=== PATIENT | born 1955 | race Caucasian/White ===

== ENCOUNTER 2017-12-12 08:51 | Day surgery (SDC) | payer OTHER ==
[2017-12-10 10:23] VITALS: BMI 30.9
[~2017-12-12 08:51] MED LIST: ALPRAZolam 0.25 MG TAB PO PRN; ALPRAZolam 0.5 MG TAB PO PRN; ASPIRIN 325 MG TAB PO STA; ATORVASTATIN 80 MG TAB PO STA; NITROGLYCERIN SL TABS 0.4 MG TAB SUBLINGUAL PRN; SODIUM CHLORIDE 0.9% 1,000 ML in EMPTY BAG 1 BAG IV ONE
[2017-12-12 09:27] VITALS: RESP 16; TEMP 98
[2017-12-12 09:47] LABS: Basophils # (A) 0.1 k/uL (0-0.2); Basophils % (A) 1 %; Eosinophils # (A) 0.3 k/uL (0-0.7); Eosinophils % (A) 4 %; Lymphocytes # (A) 2.1 k/uL (1.0-4.8); Lymphocytes % (A) 30 %; MCH 34.6 pg (25.0-35.0); MCHC 35.6 g/dL (31.0-37.0); MCV 97.3 fL (80.0-100.0); Mean Platelet Volume 6.5; Monocytes # (A) 0.4 k/uL (0-1.0); Monocytes % (A) 6 %; Neutrophils # (A) 3.9 k/uL (1.3-7.7); Neutrophils % (A) 56 %; Platelet Count 193 k/uL (150-450); RBC 4.32 m/uL (4.30-5.90); RDW 14.2 % (11.5-15.5)
[2017-12-12 10:00] LABS: Calcium 9.3 mg/dL (8.4-10.2); Potassium 4.4 mmol/L (3.5-5.1)
[2017-12-12] MEDS ORDERED: VERAPAMIL 2.5 MG/ML 2 ML AMP ONE (11:26)
[2017-12-12] MEDS ORDERED: MIDAZOLAM 2 MG/2 ML VIAL ONE (11:26)
[2017-12-12] MEDS ORDERED: MIDAZOLAM 2 MG/2 ML VIAL IV ONE (11:41)
[2017-12-12] MEDS ORDERED: HEPARIN SODIUM 1,000 UN/ML (10ML VL) ONE (11:42)
[2017-12-12] MEDS ORDERED: LIDOCAINE 2% INJ 20 MG/ML SQ ONE (11:49)
[2017-12-12] MEDS: VERAPAMIL SYRINGE (5 MG/10 ML) INTRAARTER ONE ×2 (11:51→12:06)
[2017-12-12] MEDS ORDERED: HEPARIN SODIUM 1,000 UN/ML (10ML VL) IV ONE (11:52)
[2017-12-12] MEDS ORDERED: IOPAMIDOL-370 125ML BTL INJ ONE (12:07)
[2017-12-12] MEDS ORDERED: RX INFO: IV CONTRAST WAS GIVEN 1 EACH MISC MISCELLANE PRN (12:07)
[2017-12-12] MEDS ORDERED: SODIUM CHLORIDE 0.9% 1,000 ML IV SCH (12:15)
--- NOTE | 2017-12-12 12:33 | CC ---
CARDIAC CATHETERIZATION REPORT DATE OF SERVICE: 12/12/2017 PERFORMING PHYSICIAN: Kin Biswas MD, Director Of [employer]. PROCEDURE PERFORMED: Selective right and left coronary angiogram. INDICATION: This is a pleasant 62-year-old gentleman who was experiencing chest discomfort and underwent a stress test, came in to be ischemic. In view of that, the heart catheterization was recommended. APPROACH: Right radial artery. COMPLICATION: None. LEVEL OF SEDATION: Moderate with sedation length of 60 minutes. PROCEDURE DESCRIPTION: After obtaining an informed consent, the patient was brought to the cardiac wood and wood products labourer. The right radial artery was cannulated using micropuncture technique and a micropuncture wire passed easily, then I placed a 6-[place] sheath in the right radial artery and I gave the patient 2 mg of verapamil IA and 8000 units of heparin IV. After that I did selective right and left coronary angiogram using JR4 and JL3.5 catheters. The procedure was completed without any complication. . SELECTIVE CORONARY ANGIOGRAM: 1. The RCA is a large caliber vessel and it is a dominant vessel. It is angiographically normal. It bifurcates into PDA and PLV branches, both are angiographically normal. The left main is angiographically normal. It bifurcates into the circumflex and left anterior descending artery. 2. The circumflex is a large caliber vessel. It is a nondominant vessel with the circumflex in the proximal portion is normal and gives rise into a large OM branch which seems to be angiographically normal. The mid circ is normal and gives rise into second OM branch which seems to be angiographically normal as well. The circumflex distally is angiographically normal. 3. THE LAD: The proximal LAD appeared to be angiographically normal and gives rise into a large diagonal branch which seems to be angiographically normal as well. The mid and distal LAD are angiographically normal. CONCLUSION: Normal coronary angiogram. Postprocedure management is medical treatment and follow up with the patient. MMODL / IJN: [id number] /
--- NOTE | 2017-12-12 15:27 | LTR ---
December 12, 2017 [facility] Brayden Quintana ([id number]) Dear Dr. Hansen, Mr. Brayden Quintana underwent a heart catheterization that revealed normal coronary angiogram. I want to thank you for allowing me to participate in his care. Please do not hesitate to call with any question or concern. Sincerely, Kin Biswas MD MMODL / IJN: [id number] /
[2017-12-12 15:29] VITALS: BP 140/64
[2017-12-12 15:55] VITALS: PULSE 67
== END 2017-12-12 16:05 | disposition home or self-care (01) ==
LOC: CATHCVL 08:51
PROVIDERS: ATTEND Internal Medicine Interventional Cardiology
DX: R94.39 Abnormal result of other cardiovascular function study (principal); R07.89 Other chest pain; I10 Essential (primary) hypertension; E78.00 Pure hypercholesterolemia, unspecified; Z79.82 Long term (current) use of aspirin; Z79.899 Other long term (current) drug therapy; Z88.6 Allergy status to analgesic agent; Z87.891 Personal history of nicotine dependence
CPT/HCPCS: 93454; 80048; 85025; C1769 ×2; C1894; J2001; J2250; J1644; Q9967